=== PATIENT | male | born 1990 | race African-American/Black ===

== ENCOUNTER 2016-12-18 14:07 | Emergency (ER) | payer OTHER ==
[2016-12-18] MEDS ORDERED: NAPROXEN 250 MG TABLET PO ONE (14:27)
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
[2016-12-18 16:14] VITALS: BP 127/73
== END 2016-12-18 16:10 | disposition home or self-care (01) ==
LOC: ER 14:07
DX: T14.8 Other injury of unspecified body region (principal); M79.605 Pain in left leg; V49.50XA Passenger injured in collision with unspecified motor vehicles in traffic accident, initial encounter
CPT/HCPCS: 99283

== ENCOUNTER 2016-12-19 18:16 | Emergency (ER) | payer OTHER ==
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
[2016-12-19 22:49] VITALS: BP 139/73
== END 2016-12-19 22:33 | disposition home or self-care (01) ==
LOC: ER 18:16
PROC: 2W3EX1Z Immobilization of Right Hand using Splint (ICD-10-PCS; principal; 2016-12-19)
DX: M79.641 Pain in right hand (principal); R10.9 Unspecified abdominal pain; V23.4XXA Motorcycle driver injured in collision with car, pick-up truck or van in traffic accident, initial encounter
CPT/HCPCS: 99284; 73130; 74177; 29125; L0120

== ENCOUNTER 2017-02-17 10:42 | Emergency (ER) | payer OTHER ==
[2017-02-17 10:47] VITALS: BP 135/67
--- NOTE | 2017-02-17 11:02 | ER Document Report ---
HPI - HPI Patient complains to provider of: toothache Pain Level: 4 Context: 26 yo male c/o dental pain x 2 days Associated Symptoms: None Exacerbated by: Food Relieved by: Denies Similar symptoms previously: No Recently seen / treated by doctor: No - DERM Skin Color: Normal Past Medical History - General Information source: Patient - Social History Smoking Status: Current Some Day Smoker Frequency of alcohol use: Rare Drug Abuse: None Lives with: Family Family History: Reviewed & Not Pertinent Patient has suicidal ideation: No Patient has homicidal ideation: No - Medical History Medical History: Negative Renal/ Medical History: Denies: Hx Peritoneal Dialysis - Immunizations Hx Diphtheria, Pertussis, Tetanus Vaccination: Yes Vertical Provider Document - CONSTITUTIONAL Agree With Documented VS: Yes Exam Limitations: No Limitations General Appearance: WD/WN, No Apparent Distress - INFECTION CONTROL TRAVEL OUTSIDE OF THE [place] IN LAST 30 DAYS: No - HEENT HEENT: Atraumatic, PERRLA Mouth Diagram: 1 - pain and swelling - NECK Neck: Normal Inspection, Supple - RESPIRATORY Respiratory: Breath Sounds Normal, No Respiratory Distress O2 Sat by Pulse Oximetry: 96 - CARDIOVASCULAR Cardiovascular: Regular Rate, Regular Rhythm - NEURO Level of Consciousness: Awake, Alert, Appropriate - DERM Integumentary: Warm, Dry, No Rash Course - Vital Signs Vital signs: Temp Pulse Resp BP Pulse Ox 98.7 F 68 20 135/67 H 96 02/17/17 10:46 02/17/17 10:46 02/17/17 10:46 02/17/17 10:46 02/17/17 10:46 Discharge - Discharge Clinical Impression: Pain, dental Condition: Stable Disposition: HOME, SELF-CARE Instructions: Toothache ([facility]), Penicillin V K ([facility]), Oral Narcotic Medication ( [facility]) Prescriptions: Hydrocodone/Acetaminophen [[place] 5-325 mg Tablet] 1 tab PO Q4 #10 tablet Penicillin V Potassium [Penicillin Vk 500 mg Tablet] 500 mg PO BID #20 tablet
== END 2017-02-17 11:06 | disposition home or self-care (01) ==
LOC: ER 10:42
DX: K08.89 Other specified disorders of teeth and supporting structures (principal); F17.200 Nicotine dependence, unspecified, uncomplicated
CPT/HCPCS: 99282

== ENCOUNTER 2017-02-27 11:26 | Emergency (ER) | payer OTHER ==
[2017-02-27 11:31] VITALS: BP 133/69
[2017-02-27] MEDS ORDERED: CEFTRIAXONE INJ 250 MG VIAL IM ONE (11:52)
[2017-02-27] MEDS ORDERED: AZITHROMYCIN 250 MG TABLET PO ONE (11:53)
--- NOTE | 2017-02-27 11:58 | ER Document Report ---
ED GI/ - General Chief Complaint: Pain With Urination Stated Complaint: BURNING WITH URINATION Mode of Arrival: Ambulatory Information source: Patient TRAVEL OUTSIDE OF THE [place] IN LAST 30 DAYS: No - HPI Patient complains to provider of: Dysuria, Other - Discharge Onset: Yesterday Notes: 02/27/17 11:54 Patient arrives with complaints of dysuria and small amount of penile discharge since yesterday. The patient has a new sexual partner and has not used protection. He denies abdominal pain. He denies nausea, vomiting, diarrhea. No fever. No rash. Several prior STD in the past. Denies any chest pain shortness of breath. No other complaints at this time. - Related Data Allergies/Adverse Reactions: No Known Allergies Allergy (Verified 02/27/17 11:29) Past Medical History - Social History Smoking Status: Never Smoker Chew tobacco use (# tins/day): No Frequency of alcohol use: Rare Drug Abuse: None Family History: Reviewed & Not Pertinent Patient has suicidal ideation: No Patient has homicidal ideation: No Renal/ Medical History: Denies: Hx Peritoneal Dialysis Surgical Hx: Negative - Immunizations Hx Diphtheria, Pertussis, Tetanus Vaccination: Yes Review of Systems - Review of Systems -: Yes All other systems reviewed and negative Physical Exam - Vital signs Vitals: Temp Pulse Resp BP Pulse Ox 99.0 F 63 18 133/69 H 97 02/27/17 11:30 02/27/17 11:30 02/27/17 11:30 02/27/17 11:30 02/27/17 11:30 - Notes Notes: GENERAL: alert, cooperative, nontoxic, no distress. HEAD: normocephalic, atraumatic EYES: conjunctiva pink without discharge, no external redness or swelling. EARS: no external swelling, no external redness NOSE: atraumatic, no external swelling MOUTH/THROAT: mucous membranes moist and pink, posterior pharynx without erythema, swelling, exudate. No trismus or drooling. NECK: soft, supple, full range of motion, no meningismus. CHEST: no distress, lungs clear and equal throughout. No wheezing, rales, rhonchi. CARDIAC: regular rate and rhythm, no murmur, normal capillary refill, normal pulses. No peripheral edema noted. ABDOMEN: Soft, nontender. BACK: full range of motion, no CVA tenderness. EXTREMITIES: full range of motion of all extremities. No redness, no swelling. NEURO: alert and oriented x 3, no focal deficits, full range of motion of all extremities. PYSCH: appropriate mood, affect. Patient is cooperative. SKIN: pink, warm, dry, no rash. : Circumcised penis. Small amount of thin discharge noted. No rash. Testicular exam is normal bilaterally with no mass or tenderness. Course - Re-evaluation Re-evalutation: 02/27/17 11:56 Patient is nontoxic. Stable vitals. The patient has dysuria and penile discharge after having intercourse with a new partner without using protection. He does have a small amount of discharge on exam. The rest of his exam is benign. GC chlamydia is currently pending, the patient will be treated with Rocephin and Zithromax for the emergency department. I discussed with him he should follow-up with his primary care doctor for HIV and syphilis testing. Needs to notify his partner of his symptoms, she is actually being seen in the emergency department at this time. He was instructed to use condoms at all times. Follow-up for abdominal pain, fever, testicular pain, or any further concerns. The patient is noted to have elevated blood pressure during today's emergency department visit. The patient was informed of this finding. The patient was instructed that this may be related to pre-hypertension and requires further evaluation with a primary care provider. The patient has no hypertensive symptoms at this time. The patient's emergency department workup and current diagnosis were explained to the patient and or family. Follow-up instructions were provided. Medications if prescribed were discussed. Instructions for when to return to the emergency department including specific worrisome symptoms were discussed with the patient and/or family. - Vital Signs Vital signs: Temp Pulse Resp BP Pulse Ox 99.0 F 63 18 133/69 H 97 02/27/17 11:30 02/27/17 11:30 02/27/17 11:30 02/27/17 11:30 02/27/17 11:30 Discharge - Discharge Clinical Impression: Urethritis Condition: Stable Disposition: HOME, SELF-CARE Instructions: Urethritis ([facility]) Additional Instructions: Always use condoms. Follow-up with your doctor for HIV and syphilis testing. Follow-up for abdominal pain, fever, vomiting, rash, testicular pain, any further concerns. Your blood pressure was elevated during today's visit. Have this rechecked with your doctor. Forms: Elevated Blood Pressure
[2017-02-27 14:30] LABS: CHLAM PCR NOT DETECTED (NOT DETECT)
== END 2017-02-27 12:12 | disposition home or self-care (01) ==
LOC: ER 11:26
DX: N34.2 Other urethritis (principal); R30.9 Painful micturition, unspecified; R36.9 Urethral discharge, unspecified
CPT/HCPCS: 99283; 96372; 87491; 87591; J0696

== ENCOUNTER 2017-03-03 05:58 | Emergency (ER) | payer OTHER ==
[2017-03-03 06:53] LABS: APPEARANCE,URINE CLEAR; BILIRUBIN,URINE NEGATIVE (NEGATIVE); GLUCOSE, URINE NEGATIVE (NEGATIVE); KETONES,URINE NEGATIVE (NEGATIVE); LEUKOCYTE ESTERASE,URINE NEGATIVE (NEGATIVE); NITRITE,URINE POSITIVE (NEGATIVE); PROTEIN,URINE NEGATIVE (NEGATIVE); URINE SPECIFIC GRAVITY 1.009; UROBILINOGEN,URINE NEGATIVE mg/dL (<2.0)
[2017-03-03] MEDS ORDERED: CEFTRIAXONE INJ 250 MG VIAL IM ONE (08:25)
[2017-03-03] MEDS ORDERED: ONDANSETRON ODT 4 MG TAB (6 TAB/DSPK) PO PRN (08:25)
[2017-03-03] MEDS ORDERED: DOXYCYCLINE HYCLATE 100 MG TABLET PO ONE (08:25)
[2017-03-03] MEDS ORDERED: METRONIDAZOLE 500 MG TABLET PO ONE (08:25)
[2017-03-03] MEDS ORDERED: LIDOCAINE 1% INJ-PF (10 MG/ML) 30 ML SDV INFIL ONE (08:25)
--- NOTE | 2017-03-03 08:29 | ER Document Report ---
ED General - General Chief Complaint: Urinary Problem Stated Complaint: POSSIBLE UTI TRAVEL OUTSIDE OF THE [place] IN LAST 30 DAYS: No - HPI Patient complains to provider of: dysuria Notes: Patient again is coming in for dysuria. Patient states he has been taking Azo with no relief of his symptoms. Patient was recently seen and diagnosed with urethritis did have positive gonorrhea testing. Patient states he is not having sexual contact since been treated. Patient denies any fevers chills nausea vomiting diarrhea. Patient states he does have some lymph nodes now in bilateral groin regions. - Related Data Allergies/Adverse Reactions: No Known Allergies Allergy (Verified 03/03/17 08:12) Past Medical History - Social History Smoking Status: Never Smoker Chew tobacco use (# tins/day): No Frequency of alcohol use: None Drug Abuse: None Family History: Reviewed & Not Pertinent Patient has suicidal ideation: No Patient has homicidal ideation: No Renal/ Medical History: Denies: Hx Peritoneal Dialysis Surgical Hx: Negative - Immunizations Hx Diphtheria, Pertussis, Tetanus Vaccination: Yes Review of Systems - Review of Systems Constitutional: No symptoms reported EENT: No symptoms reported Cardiovascular: No symptoms reported Respiratory: No symptoms reported Gastrointestinal: No symptoms reported Genitourinary: No symptoms reported Male Genitourinary: Other - Dysuria Musculoskeletal: No symptoms reported Skin: No symptoms reported Hematologic/Lymphatic: No symptoms reported Neurological/Psychological: No symptoms reported Physical Exam - Vital signs Vitals: Temp Pulse Resp BP Pulse Ox 98.2 F 56 L 18 132/75 H 98 03/03/17 06:06 03/03/17 06:06 03/03/17 06:06 03/03/17 06:06 03/03/17 06:06 Interpretation: Normal - General General appearance: Appears well, Alert - HEENT Head: Normocephalic, Atraumatic Eyes: Normal Pupils: PERRL - Respiratory Respiratory status: No respiratory distress Chest status: Nontender Breath sounds: Normal Chest palpation: Normal - Cardiovascular Rhythm: Regular Heart sounds: Normal auscultation Murmur: No - Abdominal Inspection: Normal Distension: No distension Bowel sounds: Normal Tenderness: Nontender Organomegaly: No organomegaly Notes: Bilateral single lymph nodes in the cord region that are prominent both proximally 1 cm x 1 cm freely mobile e no fluctuance minimal tenderness to palpation. - Genitourinary Inspection: Normal Tenderness: Nontender Cremasteric reflex: Normal Scrotum: Normal Notes: Clear discharge from the head the penis no outward lesions. - Back Back: Normal, Nontender - Extremities General upper extremity: Normal inspection, Nontender, Normal color, Normal ROM , Normal temperature General lower extremity: Normal inspection, Nontender, Normal color, Normal ROM , Normal temperature, Normal weight bearing. No: Katrina's sign - Neurological Neuro grossly intact: Yes Cognition: Normal Orientation: AAOx4 Animas Coma Scale Eye Opening: Spontaneous Animas Coma Scale Verbal: Oriented Gloria Coma Scale Motor: Obeys Commands Gloria Coma Scale Total: 15 Speech: Normal Motor strength normal: LUE, RUE, LLE, RLE Sensory: Normal - Psychological Associated symptoms: Normal affect, Normal mood - Skin Skin Temperature: Warm Skin Moisture: Dry Skin Color: Normal Course - Re-evaluation Re-evalutation: 03/03/17 09:00 Will again treat the patient for gonorrhea Chlamydia also give the patient Flagyl to treat for trichomonas. Because of the inguinal lymph nodes palpated will start patient on doxycycline for the next 10 days. Possible reinfection versus incomplete treatment - Vital Signs Vital signs: Temp Pulse Resp BP Pulse Ox 98.2 F 56 L 18 132/75 H 98 03/03/17 06:06 03/03/17 06:06 03/03/17 06:06 03/03/17 06:06 03/03/17 06:06 - Laboratory Laboratory results interpreted by me: 03/03/17 06:25 Urine Nitrite POSITIVE H Discharge - Discharge Clinical Impression: Urethritis, Lymphadenopathy, inguinal Condition: Good Disposition: HOME, SELF-CARE Instructions: Urethritis ([facility]), Lymphadenopathy ([facility]) Additional Instructions: I am concerned today that your urinalysis does still shows signs of infection with the 2 lymph nodes that refill in your groin.. More likely you have reactive lymph nodes due to infection. We will again retreat you for gonorrhea chlamydia and today trichomonas. Am going to start you on an antibiotic called doxycycline. He'll be on this antibiotic for 10 days. Please be aware these medications can cause nausea. May take a nausea medication given to you here in the ER as directed one pill every 6 hours as needed for nausea. Please be aware the doxycycline will make you very photosensitive therefore make it easy for you to sunburn. Continues take Tylenol and Motrin for pain control. He may continue the Azo for dysuria or burning with urination Avoid any sexual contact for the next 2 weeks. I would recommend a follow-up visit with [facility] care physician in approximately 2 weeks Prescriptions: Doxycycline Hyclate 100 mg PO BID #20 capsule Forms: Return to Work
[2017-03-03 09:10] VITALS: BP 137/77
== END 2017-03-03 09:10 | disposition home or self-care (01) ==
LOC: ER 05:58
DX: A54.01 Gonococcal cystitis and urethritis, unspecified (principal); R59.0 Localized enlarged lymph nodes; R30.0 Dysuria
CPT/HCPCS: 99283; 96372; 87086; 81001; J3490; J0696